=== PATIENT | male | born 1945 | race Caucasian/White ===

== ENCOUNTER 2018-08-04 16:01 | Emergency (ER) | payer MEDICARE, BC ==
[2018-08-04 17:19] LABS: #Eosinphils 0.4 thou/uL (0.0-0.7); #Monocytes 0.9 thou/uL (0.11-0.59); #Neutrophils 7.3 thou/uL (1.40-6.50); %Basophils 0.3 % (0.0-1.0); %Eosinophils 3.7 % (0.0-10.0); %Monocytes 8.2 % (0.0-10.0); %Neutrophils 68.8 % (42.0-75.0); Hemoglobin 17.8 g/dL (14.0-18.0); Mean Corpuscular HGB CONC 33.2 g/dL (32.0-36.0); Mean Corpuscular Hemoglobin 32.8 pg (27.0-31.0); Mean Corpuscular Volume 98.8 fL (78.0-98.0); Mean Platelet Volume 6.5 fL (7.4-10.4); Platelet Count 346 thou/uL (130-400); RBC Distribution Width 11.6 % (11.5-14.5); Red Blood Cell (RBC) Count 5.42 mill/uL (4.70-6.10); White Blood Cell (WBC) Count 10.6 thou/uL (4.8-10.8)
[2018-08-04 17:53] LABS: ALT (SGPT) 21 U/L (8-55); AST (SGOT) 23 U/L (5-34); Albumin 4.2 g/dL (3.4-4.8); Alkaline Phosphatase 74 U/L (40-150); Anion Gap 16 mmol/L (10-20); BUN (Urea Nitrogen) 21 mg/dL (8.4-25.7); Bilirubin, Total 0.5 mg/dL (0.2-1.2); Calc. Creatinine Clearance 0 mL/min (70-130); Calcium 9.9 mg/dL (7.8-10.44); Carbon Dioxide 20 mmol/L (23-31); Chloride 105 mmol/L (98-107); Estimated GFR-MDRD 67; Globulin 4.1 g/dL (2.4-3.5); Glucose 96 mg/dL (83-110); Potassium 4.5 mmol/L (3.5-5.1); Protein, Total 8.3 g/dL (5.8-8.1); Sodium 136 mmol/L (136-145)
[2018-08-04] MEDS ORDERED: cefTRIAXone\\ROCEPHIN 500 MG VIAL ONE (18:28)
[2018-08-04] MEDS ORDERED: Adacel (T-DAP) 0.5 ML SYRINGE ONE (18:28)
[2018-08-04] MEDS ORDERED: Lidocaine 1% PF 5 ML VIAL ONE (18:28)
[2018-08-04] MEDS ORDERED: cefTRIAXone\\ROCEPHIN 1 GM VIAL ONE (18:29)
== END 2018-08-04 19:45 | disposition home or self-care (01) ==
LOC: ERS 16:01
DX: S91.051A Open bite, right ankle, initial encounter (principal); S91.031A Puncture wound without foreign body, right ankle, initial encounter; L03.115 Cellulitis of right lower limb; W55.01XA Bitten by cat, initial encounter
CPT/HCPCS: 36415; 80053; 83605; 85025; 90471; 90715; 96372; J0696; J2001

== ENCOUNTER 2018-08-08 14:39 | Inpatient (IN) | payer MEDICARE, BC ==
[2018-08-08 16:06] LABS: #Eosinphils 0.2 thou/uL (0.0-0.7); #Lymphocytes 1.7 thou/uL (1.20-3.40); #Monocytes 0.9 thou/uL (0.11-0.59); #Neutrophils 6.6 thou/uL (1.40-6.50); %Basophils 0.5 % (0.0-1.0); %Eosinophils 2.2 % (0.0-10.0); %Lymphocytes 17.6 % (21.0-51.0); %Monocytes 9.9 % (0.0-10.0); %Neutrophils 69.9 % (42.0-75.0); Hemoglobin 16.6 g/dL (14.0-18.0); Mean Corpuscular HGB CONC 32.9 g/dL (32.0-36.0); Mean Corpuscular Hemoglobin 32.2 pg (27.0-31.0); Mean Platelet Volume 6.1 fL (7.4-10.4); Platelet Count 432 thou/uL (130-400); RBC Distribution Width 11.5 % (11.5-14.5); Red Blood Cell (RBC) Count 5.15 mill/uL (4.70-6.10); White Blood Cell (WBC) Count 9.4 thou/uL (4.8-10.8)
[2018-08-08] MEDS ORDERED: HYDROcodone/Acetaminophen 10/325 mg Tablet ONE (16:06)
[2018-08-08] MEDS ORDERED: Clindamycin/D5W 900 mg/50 ml Premix Bag ONE (16:06)
[2018-08-08] MEDS ORDERED: cefTRIAXone\\ROCEPHIN 1 GM VIAL ONE (16:06)
--- NOTE | 2018-08-08 16:11 | RAD ---
RIGHT TIBIA AND FIBULA 2 VIEWS: Date: 08/08/18 HISTORY: 73-year-old male with history of cat bite to distal lower leg, with concern for foreign body. FINDINGS: There is some soft tissue swelling of the lower leg with some focal soft tissue swelling anteriorly o jeramy the inferior tibial diaphysis region. No fracture or dislocation. Prominent vascular calcificatio ns. No evidence for foreign body. IMPRESSION: No evidence for an abnormal opaque foreign body. Soft tissue swelling. No significant osseous abnorma lity. POS: TAVO
[2018-08-08 16:25] LABS: ALT (SGPT) 21 U/L (8-55); AST (SGOT) 21 U/L (5-34); Albumin 3.8 g/dL (3.4-4.8); Alkaline Phosphatase 79 U/L (40-150); Anion Gap 15 mmol/L (10-20); BUN (Urea Nitrogen) 19 mg/dL (8.4-25.7); Bilirubin, Total 0.4 mg/dL (0.2-1.2); Calc. Creatinine Clearance 0 mL/min (70-130); Calcium 9.6 mg/dL (7.8-10.44); Carbon Dioxide 22 mmol/L (23-31); Chloride 105 mmol/L (98-107); Estimated GFR-MDRD 65; Globulin 3.7 g/dL (2.4-3.5); Glucose 95 mg/dL (83-110); Potassium 4.9 mmol/L (3.5-5.1); Protein, Total 7.5 g/dL (5.8-8.1); Sodium 137 mmol/L (136-145)
[2018-08-08] MEDS ORDERED: cloNIDine 0.1 MG TAB PO PRN (17:58)
[2018-08-08] MEDS ORDERED: Calcium Carbonate 500 MG ChewTAB PO PRN (17:58)
[2018-08-08] MEDS ORDERED: Nitroglycerin 0.4 MG TAB (25 Tab Bottle) SL PRN (17:58)
[2018-08-08] MEDS ORDERED: Acetaminophen 325 MG TAB PO PRN (17:58)
[2018-08-08] MEDS ORDERED: Ondansetron PF 4 MG/2 ML Vial IVP PRN (17:58)
[2018-08-08] MEDS ORDERED: Diabetic Tussin 200 MG/10 ML UDCUP PO PRN (17:58)
[2018-08-08] MEDS ORDERED: hydrALAZINE 20 MG/ML VIAL SLOW IVP PRN (17:58)
[2018-08-08] MEDS ORDERED: Bisacodyl 5 MG TAB PO PRN (17:58)
[2018-08-08] MEDS ORDERED: Benzonatate 100 MG CAP PO PRN (17:58)
[2018-08-08] MEDS ORDERED: Senokot S 8.6-50 MG TAB PO PRN (17:58)
--- NOTE | 2018-08-08 20:25 | HP ---
PRIMARY CARE PHYSICIAN: Dr. Hari Chambers. CHIEF COMPLAINT: Worsening redness, swelling, and pain in the leg after the cat bite: Failed outpatient antibiotic therapy. HISTORY OF PRESENTING ILLNESS: Mr. Burton is a pleasant 73-year-old male without any significant past medical history, who presented to the emergency room with the above-mentioned complaint. History is mainly obtained by the patient himself. Electronic medical records have been reviewed. The patient reports that he was bitten by his house cat about a week ago and started to develop swelling and redness. He sought care at the emergency room and was given doxycycline and Keflex. His redness did go down, but extended downward towards the foot. It is located in the right lower leg anteriorly. Since yesterday, he has been noticing worsening localized swelling around the bite site with worsening erythema, tenderness, and purulence. He also has been having on and off subjective fever and chills. He is complying with his antibiotic therapy. He reports that the same cat has bitten him twice earlier this year. All those times he just put some antibiotic ointment on the bite and did not require any oral antibiotics. This time because of the severity of infection, they did get the cat checked out for rabies, but the cat was put down emergently instead of being monitored for the next week or 2. The cat that bit the patient was not vaccinated. He did get tetanus vaccination after his first ER visit. Today, upon presentation, he has been hemodynamically stable with a blood pressure of 126/89 with a pulse of 89, saturating 94% on room air. He did undergo a bedside ultrasound with the emergency room physician, which did not show any abscess collection. He did undergo an x-ray of the tibia and fibula of the involved leg, which did not show any evidence of any foreign body or osseous abnormality. He received Rocephin in the emergency room despite his history of penicillin allergy and tolerated it very well. He also received clindamycin in the ER. He is now being admitted to medical floor for right lower extremity cellulitis after the cat bite with failed outpatient therapy. PAST MEDICAL HISTORY: No significant past medical history. PAST SURGICAL HISTORY: 1. Bilateral shoulder surgery. 2. Left wrist surgery x4. PSYCHIATRIC HISTORY: No anxiety. No depression. SOCIAL HISTORY: No history of drug, tobacco, or alcohol abuse. He is and lives with his . They also have a dog, who is vaccinated. FAMILY HISTORY: History of esophageal cancer in his grandfather who smoked. Otherwise, no significant history of coronary artery disease or stroke. ALLERGIES: PENICILLIN. HOME MEDICATIONS: None. REVIEW OF SYSTEMS: A 12-point review of system is done, it is negative except for those mentioned in the history and physical. CODE STATUS: Full code discussed with the patient. LABORATORY EXAMINATION: CBC is unremarkable. Platelet count 432, ESR 50. CRP elevated to 12.49. Otherwise, serum chemistries unremarkable. DIAGNOSTIC DATA: X-ray of the tibia and fibula by my review shows no foreign body and no evidence of any bone involvement. PHYSICAL EXAMINATION: VITAL SIGNS: Upon presentation; blood pressure 126/89, pulse of 89, respirations 18, saturating 94% on room air, temperature 98.2. GENERAL: No acute distress. Awake, alert, and oriented x3. He does appear somewhat ill, but awake, alert, and oriented x3. HEENT: Mucous membrane is moist and pink. No oropharyngeal exudate or erythema. Head is normocephalic, atraumatic. Pupils are equal, reactive to light and accommodation. Extraocular movement intact. NECK: Supple without any lymphadenopathy, JVD, or bruit. CHEST: Clear to auscultation without any wheezing, rales, or rhonchi. Rate and rhythm are regular without any murmurs, rubs, or gallops. ABDOMEN: Soft, nontender, nondistended with positive bowel sounds. EXTREMITIES: He has a localized swelling on the anterior berrios, which is deeply erythematous with some induration. Drying scabs of cat bite are noticed on top of this swelling. He has erythema and tenderness to palpation. The erythema extends downward towards his foot, but it is receding from the markings done by the ER on his leg in upwards. No significant lymphadenopathy is palpable. Other extremities examination are unremarkable. NEUROLOGICAL: Nonfocal. PSYCHIATRIC: Normal affect. IMPRESSION AND PLAN: 1. Right lower extremity cellulitis after a cat bite. He has failed outpatient antibiotic treatment and will need at least 2 to 3 days worth of IV antibiotics. With his penicillin allergy, we will treat him with levofloxacin and Flagyl for now. There is also a question if the cat needed to be monitored longer for rabies as the cat was unvaccinated. I am not sure if the patient will require post exposure rabies prophylaxis or not. We will request consultation with ID with regard to this question. Unfortunately, the cat was put down right away after the bite. However, the patient has sustained multiple bites from the cat in the past and has been doing well and so had the cat. No evidence of sepsis at this time. We will start him on gentle IV fluids as he was complaining of some dizziness. 2. Deep venous thrombosis and gastrointestinal prophylaxis and walking program. 3. Code status: Full code discussed with the patient. 4. Check labs in the morning. 5. Add p.r.n. medications and supportive care. DISPOSITION: Estimated length of stay at this time is at least 2 to 3 midnights. Further management will depend upon his clinical course. Job ID: [id number]
[2018-08-08] MEDS: Sodium Chloride 0.9% 1,000 ML IV SCH (20:47)
[2018-08-08] MEDS: metroNIDAZOLE 500 MG in Premix Bag 1 BAG IVPB SCH (20:47)
[2018-08-08] MEDS: Famotidine 20 MG TAB PO SCH (20:51)
[2018-08-09] MEDS: HYDROcodone/Acetaminophen 5/325 mg Tablet PO PRN ×2 (00:35→23:26)
[2018-08-09] MEDS: metroNIDAZOLE 500 MG in Premix Bag 1 BAG IVPB SCH ×2 (04:40→12:49)
[2018-08-09 06:48] LABS: #Basophils 0.1 thou/uL (0.0-0.2); #Eosinphils 0.6 thou/uL (0.0-0.7); #Lymphocytes 1.7 thou/uL (1.20-3.40); #Monocytes 0.8 thou/uL (0.11-0.59); #Neutrophils 4.4 thou/uL (1.40-6.50); %Eosinophils 7.8 % (0.0-10.0); %Lymphocytes 21.9 % (21.0-51.0); %Monocytes 10.9 % (0.0-10.0); %Neutrophils 58.4 % (42.0-75.0); Hemoglobin 13.8 g/dL (14.0-18.0); Mean Corpuscular HGB CONC 33.1 g/dL (32.0-36.0); Mean Corpuscular Hemoglobin 32.4 pg (27.0-31.0); Mean Platelet Volume 6.2 fL (7.4-10.4); Platelet Count 378 thou/uL (130-400); RBC Distribution Width 11.3 % (11.5-14.5); Red Blood Cell (RBC) Count 4.25 mill/uL (4.70-6.10); White Blood Cell (WBC) Count 7.6 thou/uL (4.8-10.8)
[2018-08-09 06:58] LABS: Anion Gap 12 mmol/L (10-20); BUN (Urea Nitrogen) 17 mg/dL (8.4-25.7); Calc. Creatinine Clearance 82 mL/min (70-130); Calcium 8.6 mg/dL (7.8-10.44); Carbon Dioxide 25 mmol/L (23-31); Chloride 107 mmol/L (98-107); Estimated GFR-MDRD 69; Glucose 94 mg/dL (83-110); Sodium 139 mmol/L (136-145)
[2018-08-09] MEDS: Enoxaparin Sodium 40 MG/0.4 ML SYRINGE SC SCH (08:57)
[2018-08-09] MEDS: Famotidine 20 MG TAB PO SCH ×2 (08:57→20:01)
--- NOTE | 2018-08-09 11:21 | PDOC.PN ---
- Subjective Encounter Start Date: 08/09/18 Encounter Start Time: 11:19 Mr. Burton was seen today in follow-up of cellulitis of the right leg. He says the swelling and redness has improved. He still has a lot of pain in the ankle, especially at night and when he tries to put pressure on the foot. - Objective Resuscitation Status - Order Detail: 08/08/18 19:48 Resuscitation Status Routine Resuscitation Status: FULL: Full Resuscitation Discussed with: discussed w pt EMILY Reviewed: Yes Vital Signs & Weight: Vital Signs (12 hours) Temp Pulse Resp BP Pulse Ox 08/09/18 08:17 98.0 F 65 20 105/69 95 08/09/18 04:40 98.5 F 65 16 99/73 08/09/18 00:30 98.4 F 79 18 112/66 Weight Weight 201 lb 0.985 oz I&O: 08/08/18 08/09/18 08/10/18 06:59 06:59 06:59 Intake Total 934 Balance 934 Result Diagrams: 08/09/18 06:05 08/09/18 06:05 Phys Exam - Physical Examination HEENT: PERRLA Respiratory: no wheezing, no rales, no rhonchi, clear to auscultation bilateral Cardiovascular: RRR, no significant murmur, no rub Gastrointestinal: soft, non-tender, no distention, positive bowel sounds Musculoskeletal: pulses present, edema present + erythema of the right ankle, no warmth good distal pulses, and good capillary refill Dx/Plan (1) Cellulitis of right ankle Code(s): L03.115 - CELLULITIS OF RIGHT LOWER LIMB Status: Acute - Plan * Cellulitis of the right leg, and ankle, due to a cat bite- continue Levaquin and Flagyl, as an alternative to UNasyn due to his PCN allergy * The patient requests that Dr. Martin see him and make recommendations
[2018-08-09] MEDS: cefTRIAXone\\ROCEPHIN 2 GM in Sodium Chloride 0.9% 100 ML IVPB SCH (18:08)
[2018-08-09] MEDS: Vancomycin HCl 1.25 GM in Sodium Chloride 0.9% 250 ML 250 ML IVPB SCH (18:45)
[2018-08-09] MEDS: HYDROcodone/Acetaminophen 10/325 mg Tablet PO PRN (20:01)
[2018-08-09] MEDS: Aspirin 325 mg Enteric Coated Tablet PO SCH (20:01)
[2018-08-09] MEDS: Sodium Chloride 0.9% 1,000 ML IV SCH (23:19)
--- NOTE | 2018-08-09 23:24 | CON ---
DATE OF CONSULTATION: 08/09/2018 REASON FOR CONSULTATION: Cat bite of inflammatory changes. HISTORY OF PRESENT ILLNESS: A 73-year-old, whom I had treated in the past for a left wrist fracture with infection, who was bitten by his cat about a week and a half ago, who has failed outpatient oral antimicrobial therapy managements. He is currently with pain in the right leg with swelling. No headaches, visual symptoms, sore throat, odynophagia, dysphagia. No cough or sputum production. No chest pain. No back pain. No abdominal pain or diarrhea. No genitourinary symptoms. No other joint symptoms. PAST MEDICAL HISTORY: Past history of fracture of the left wrist with postop infection, treated with protracted period of time with IV antimicrobial therapy with resolution. SOCIAL HISTORY: Never smoker. Lives with . FAMILY HISTORY: Esophageal cancer in grandfather. ALLERGIES: PENICILLIN WITH RASH. PHYSICAL EXAMINATION: VITAL SIGNS: T-max 98.1, blood pressure 120/80, pulse 73, respirations 16, O2 saturation 94%. SKIN: Shows the area of swelling and erythema in the distal aspect of the right leg anterior side. Peripheral IV access. No Timmons catheter. HEENT: No lymphadenopathy. Ocular movements conjugate. Oral cavity normal. NECK: Supple. LUNGS: Symmetric. Clear breath sounds. HEART: S1 and S2. Regular rate. No S3 or S4. ABDOMEN: Soft, not distended or tender. : No genitourinary abnormalities. EXTREMITIES: Pulses are 2+ in dorsalis pedis. Knees are normal. Ankles with normal range of motion. NEUROLOGIC: Cognitive function appears to be intact. LABORATORY DATA: White cell count is 9.4 and 7.6, hemoglobin 13.8, platelets 378, with 58% neutrophils. Sodium 137, creatinine 1.11 with a normal liver profile. CRP 12.49, albumin 3.8. Microbiology; we have pending blood cultures. IMAGING STUDIES: We have tibia and fibula x-ray with no abnormalities in bone. ASSESSMENT: Cat bite with inflammatory changes, which have not responded to antimicrobial therapy administered in the outpatient setting. 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 Staphylococcal infection is possible including MRSA. Switch the patient to Rocephin and vancomycin. DC Flagyl and DC quinolone for the time being. MRI of the distal aspect of the right leg to evaluate for abscess and osteomyelitis. Job ID: [id number]
[2018-08-10] MEDS: Vancomycin HCl 1.25 GM in Sodium Chloride 0.9% 250 ML 250 ML IVPB SCH ×2 (05:39→19:10)
[2018-08-10] MEDS: Enoxaparin Sodium 40 MG/0.4 ML SYRINGE SC SCH (11:03)
[2018-08-10] MEDS: Famotidine 20 MG TAB PO SCH ×2 (11:03→21:17)
--- NOTE | 2018-08-10 14:18 | PDOC.PN ---
- Subjective Encounter Start Date: 08/10/18 Encounter Start Time: 14:11 Mr. Burton was seen today in follow-up of cellulitis. He still has some soreness in the ankle, especially when he puts pressure on it. - Objective Resuscitation Status - Order Detail: 08/08/18 19:48 Resuscitation Status Routine Resuscitation Status: FULL: Full Resuscitation Discussed with: discussed w pt MAR Reviewed: Yes Vital Signs & Weight: Vital Signs (12 hours) Temp Pulse Resp BP Pulse Ox 08/10/18 11:24 97.5 F L 73 18 136/80 95 08/10/18 08:00 98.8 F 77 20 122/85 97 08/10/18 05:37 98.0 F 65 18 102/67 Weight Weight 201 lb 0.985 oz I&O: 08/09/18 08/10/18 08/11/18 06:59 06:59 06:59 Intake Total 934 2150 Balance 934 2150 Result Diagrams: 08/09/18 06:05 08/09/18 06:05 Phys Exam - Physical Examination HEENT: PERRLA Respiratory: no wheezing, no rales, no rhonchi, clear to auscultation bilateral Cardiovascular: RRR, no significant murmur Gastrointestinal: soft, non-tender, positive bowel sounds Musculoskeletal: pulses present, edema present + swelling and redness especially about the ankle Dx/Plan (1) Cellulitis of right ankle Code(s): L03.115 - CELLULITIS OF RIGHT LOWER LIMB Status: Acute - Plan * Cellulitis of the right ankle- continue Rocephin and Vancomycin * MRI results are pending * Patient was having quite a bit of pain on ambulating. He was seen by PT, and they are recommending a walker. Will order a rolling walker.
--- NOTE | 2018-08-10 14:38 | MRI ---
MRI RIGHT ANKLE WITH AND WITHOUT CONTRAST: HISTORY: Cat bite. Failed outpatient therapy. COMPARISON: Radiographs of 2 days prior. FINDINGS: In the superficial soft tissues overlying the tibialis anterior tendon is a fluid collection with per ipheral enhancement suggesting an abscess. This is within the subcutaneous fat. There is some exten desiree along the partially torn overlying fascia over the tendon of the tibialis anterior for which the fascia is partially torn as well as the interstitial partial tear of the tendon itself. There is ab normal fluid attenuation around the tendon as well as within the tendon sheath which is partially tor n as well as some abnormal enhancement and edema within the tibialis anterior muscle. The adjacent c ortex of the tibia is intact. No osteomyelitis. There is extensive soft tissue swelling. The peripherally enhancing collection appears to be decompressed with a possible extension to the ski n. This measures 11 mm in transverse by 5 mm in AP x 11 mm in craniocaudad dimension. IMPRESSION: 1. No evidence of osteomyelitis. 2. Likely at the site of recent bite is a peripherally enhancing fluid collection in the subcutaneou s fat extending through the fascia overlying the tibialis anterior tendon and within the tendon sheat h measuring approximately 11 x 4 x 11 mm. There appears to be a tract to the skin surface and this c ollection is decompressed, likely a draining abscess. There is associated infectious tenosynovitis t o the tibialis anterior as well as some myositis of the tibialis anterior muscle without pyomyositis. POS: H
[2018-08-10] MEDS: cefTRIAXone\\ROCEPHIN 2 GM in Sodium Chloride 0.9% 100 ML IVPB SCH (18:15)
[2018-08-10] MEDS: Sodium Chloride 0.9% 20 ML ONE (19:10)
[2018-08-10] MEDS: HYDROcodone/Acetaminophen 10/325 mg Tablet PO PRN ×2 (19:29→23:55)
[2018-08-10] MEDS: Aspirin 325 mg Enteric Coated Tablet PO SCH (21:17)
[2018-08-11] MEDS: HYDROcodone/Acetaminophen 10/325 mg Tablet PO PRN ×3 (05:20→21:38)
[2018-08-11 05:57] LABS: Vancomycin, Trough 15.6 ug/mL
[2018-08-11] MEDS: Vancomycin HCl 1.25 GM in Sodium Chloride 0.9% 250 ML 250 ML IVPB SCH ×2 (06:17→17:03)
[2018-08-11] MEDS ORDERED: Sodium Chloride 0.9% 20 ML ONE (08:00)
[2018-08-11] MEDS ORDERED: Lidocaine 1% w/Epinephrine 1:200K 30 ML VIAL FS SCH (11:00)
[2018-08-11] MEDS: Famotidine 20 MG TAB PO SCH ×2 (11:48→21:38)
[2018-08-11] MEDS: Enoxaparin Sodium 40 MG/0.4 ML SYRINGE SC SCH (11:48)
--- NOTE | 2018-08-11 11:56 | PDOC.PN ---
- Subjective Encounter Start Date: 08/11/18 Encounter Start Time: 11:54 Subjective: feels much better.leg swelling and redness has much improved -: able to walk today w walker but has pain in the ant part of involved leg - Objective Resuscitation Status - Order Detail: 08/08/18 19:48 Resuscitation Status Routine Resuscitation Status: FULL: Full Resuscitation Discussed with: discussed w pt MAR Reviewed: Yes Vital Signs & Weight: Vital Signs (12 hours) Temp Pulse Resp BP Pulse Ox 08/11/18 11:00 98.0 F 72 16 105/67 08/11/18 08:00 98.1 F 71 16 123/80 95 08/11/18 05:17 98.4 F 62 16 133/85 98 08/10/18 23:56 98.2 F 63 18 134/83 95 Weight Weight 201 lb 0.985 oz I&O: 08/10/18 08/11/18 08/12/18 06:59 06:59 06:59 Intake Total 2150 851 Balance 2150 851 Result Diagrams: 08/09/18 06:05 08/09/18 06:05 Radiology Reviewed by me: Yes (MRI leg-fluid collection? abscess) Phys Exam - Physical Examination Constitutional: NAD HEENT: PERRLA, moist MMs, sclera anicteric, oral pharynx no lesions Neck: no nodes, no JVD, supple, full ROM Respiratory: no wheezing, no rales, no rhonchi, clear to auscultation bilateral Cardiovascular: RRR, no significant murmur, no rub Gastrointestinal: soft, non-tender, no distention, positive bowel sounds Musculoskeletal: no edema, pulses present Neurological: non-focal, normal sensation, moves all 4 limbs Psychiatric: normal affect, A&O x 3 Skin: no rash Dx/Plan (1) Cellulitis of right leg Code(s): L03.115 - CELLULITIS OF RIGHT LOWER LIMB Status: Acute (2) Cat bite Code(s): W55.01XA - BITTEN BY CAT, INITIAL ENCOUNTER Status: Acute (3) BPH (benign prostatic hyperplasia) Code(s): N40.0 - BENIGN PROSTATIC HYPERPLASIA WITHOUT LOWER URINRY TRACT SYMP Status: Chronic - Plan plan discussed w/ family, continue antibiotics, PT/OT, out of bed/ambulate cont rocephin and vancomycin. -: Will request GS recs regarding MRI results.? If I&D is needed -: clinically much better. -: HD stable. * . Review of Systems - Review of Systems Constitutional: weakness. negative: fever, chills, sweats, malaise, other Respiratory: negative: Cough, Dry, Shortness of Breath, Hemoptysis, SOB with Excertion, Pleuritic Pain, Sputum, Wheezing Cardiovascular: negative: chest pain, palpitations, orthopnea, paroxysmal nocturnal dyspnea, edema, light headedness, other Gastrointestinal: negative: Nausea, Vomiting, Abdominal Pain, Diarrhea, Constipation, Melena, Hematochezia, Other Genitourinary: negative: Dysuria, Frequency, Incontinence, Hematuria, Retention , Other Musculoskeletal: negative: Neck Pain, Shoulder Pain, Arm Pain, Back Pain, Hand Pain, Leg Pain, Foot Pain, Other Neurological: negative: Weakness, Numbness, Incoordination, Change in Speech, Confusion, Seizures, Other - Medications/Allergies Allergies/Adverse Reactions: Allergies Allergy/AdvReac Type Severity Reaction Status Date / Time Penicillins Allergy Verified 10/13/14 11:23 Medications: Current Medications Acetaminophen (Tylenol) 650 mg PO Q4H PRN PRN Reason: Headache/Fever/Mild Pain (1-3) Hydrocodone Bitart/Acetaminophen (Elmo 5/325) 1 tab PO Q4H PRN PRN Reason: Moderate Pain (4-6) Last Admin: 08/09/18 23:26 Dose: 1 tab Hydrocodone Bitart/Acetaminophen (Elmo 10/325) 1 tab PO Q4H PRN PRN Reason: Moderate to Severe Pain (6-10) Last Admin: 08/11/18 11:49 Dose: 1 tab Aspirin (Ecotrin) 325 mg PO QPM [facility] Last Admin: 08/10/18 21:17 Dose: 325 mg Benzonatate (Tessalon) 100 mg PO Q6H PRN PRN Reason: Cough Bisacodyl (Dulcolax) 10 mg PO DAILYPRN PRN PRN Reason: Constipation Calcium Carbonate (Tums) 1,000 mg PO Q4H PRN PRN Reason: Heartburn or Indigestion Clonidine (Catapres) 0.1 mg PO Q4H PRN PRN Reason: SBP > 160____ Enoxaparin Sodium (Lovenox) 40 mg SC 0900 [facility] Last Admin: 08/11/18 11:48 Dose: 40 mg Famotidine (Pepcid) 20 mg PO BID [facility] Last Admin: 08/11/18 11:48 Dose: 20 mg Guaifenesin (Robitussin Sf) 200 mg PO Q4H PRN PRN Reason: Cough Hydralazine HCl (Apresoline) 10 mg SLOW IVP Q4H PRN PRN Reason: SBP > 180 and HR < 70 Ceftriaxone Sodium 2 gm/ (Sodium Chloride) 100 mls @ 200 mls/hr IVPB Q24HR [facility] Last Admin: 08/10/18 18:15 Dose: 100 mls Vancomycin HCl 1.25 gm/ Sodium (Chloride) 250 mls @ 166.67 mls/hr IVPB 0600, 1800 [facility] Last Admin: 08/11/18 06:17 Dose: 250 mls Lidocaine/Epinephrine (Xylocaine 1% W/ Epi 1:200k) 30 ml FS WILLCALL [facility] Stop: 08/11/18 23:59 Nitroglycerin (Nitrostat) 0.4 mg SL Q5MIN PRN PRN Reason: Chest Pain Ondansetron HCl (Zofran) 4 mg IVP Q6H PRN PRN Reason: Nausea/Vomiting Senna/Docusate Sodium (Senokot S) 2 tab PO BID PRN PRN Reason: Constipation
--- NOTE | 2018-08-11 15:47 | PRG ---
DATE OF SERVICE: 08/11/2018 HISTORY OF PRESENT ILLNESS: Mr. Bruton has felt improvement in inflammatory process. Dr. Roland did an ultrasound and saw only a small amount of fluid in the soft tissues of the right leg. Currently, no headaches, visual symptoms, sore throat, odynophagia, or dysphagia. No dyspnea or chest pain. No abdominal pain or diarrhea. No genitourinary symptoms. Temperature is normal. Other vital signs are normal. Skin exam shows decrease in the erythema and swelling of the right anterior leg. No drainage is noted at this time. Ocular movements conjugate. Lungs are clear. S1 and S2, regular rate. Abdomen is soft and not distended. LABORATORY DATA: White cell count 7.6, hemoglobin 13, platelets 378. Chemistries, unremarkable. No microbiology info. The MRI of the lower extremity demonstrates no evidence of osteomyelitis and there is an enhancing fluid collection, subcutaneous fat extending through the fascia overlying the tibialis anterior tendon and within the tendon sheath. This whole entire fluid collection measures 11 x 4 x 11 mm. It is quite small. ASSESSMENT AND DISCUSSION: Cat bite, right leg with abscess either secondary to pasteurella multocida or Staphylococcus aureus. MRSA possible. Continue Rocephin, vancomycin. May need surgical debridement or not. It looks like it is improving just with antimicrobial therapy. In view of the tendon involvement, I would extend the duration of therapy longer than what one would otherwise with just the subcutaneous tissue abscess. After further improvement and transition to combination of doxycycline and ciprofloxacin for discharge planning. Duration of therapy anywhere from 3 to 4 weeks. Job ID: [id number]
[2018-08-11] MEDS: Sodium Chloride 0.9% 20 ML ONE (17:04)
[2018-08-11] MEDS: HYDROcodone/Acetaminophen 5/325 mg Tablet PO PRN (17:11)
[2018-08-11] MEDS: cefTRIAXone\\ROCEPHIN 2 GM in Sodium Chloride 0.9% 100 ML IVPB SCH (19:32)
[2018-08-11] MEDS: Aspirin 325 mg Enteric Coated Tablet PO SCH (21:38)
--- NOTE | 2018-08-11 21:38 | CON ---
DATE OF CONSULTATION: REASON FOR CONSULT: Evaluate for possible abscess from cat bite on the right leg. HISTORY OF PRESENT ILLNESS: Mr. Burton is a 73-year-old man who was bitten by house cat on the right leg about a week prior to his admission. He developed swelling and redness and was prescribed doxycycline and Keflex, but the redness persisted and moved toward his foot, and he also had increasing swelling and tenderness. He denies any drainage from the bites and has been compliant with antibiotics. He had been bitten before by the same cat and this is the 3rd injury that the cat had inflicted on him, so it was taken to and was put to sleep. Rabies examination was negative. The cat was not vaccinated. He was admitted to the hospital for IV antibiotics and initially received Rocephin and vancomycin. Dr. Martin saw him 2 days ago and recommended Rocephin and vancomycin, Flagyl and quinolones were discontinued. An MRI was also obtained. The patient states that since switching antibiotics 2 days ago, his leg has gotten significantly better. Dr. Damon also confirms that the leg looks better than yesterday. He denies any fevers or chills and is feeling well, although he still has some tenderness at the site. PAST MEDICAL HISTORY: None. PAST SURGICAL HISTORY: Shoulder and wrist surgery. SOCIAL HISTORY: He does not smoke, drink, or use illicit drugs. FAMILY HISTORY: He has a family history of esophageal cancer. ALLERGIES: HE REPORTS ALLERGY TO PENICILLIN. MEDICATIONS: Does not take any routine home medications. REVIEW OF SYSTEMS: Ten-system review of systems is negative except per HPI. PHYSICAL EXAMINATION: VITAL SIGNS: The patient has been afebrile, heart rate in the 60s to 70s, respirations 16 to 20, and 95% saturated on room air with normal blood pressure. GENERAL: Reveals a healthy-appearing man, who appears younger than his stated age. He is not flushed or toxic in appearance. He is not jaundiced or icteric. HEENT: Unremarkable. NECK: Supple without lymphadenopathy. HEART: Regular rate in its and rhythm without murmurs, rubs, or gallops. LUNGS: Clear to auscultation bilaterally. ABDOMEN: Soft, nontender, and nondistended. EXTREMITIES: Warm and well perfused. He has focal redness and swelling over his right anterior berrios with several deep puncture wounds. There is some bogginess to the tissues, but no fluctuance and no expressible drainage from any of the puncture wounds. No lymphangitic streaking and only mild edema of the surrounding tissues. NEUROLOGIC: No focal deficits. PSYCHIATRIC: Alert, oriented, and appropriate. LABORATORY DATA: Lower extremity MRI revealed a peripherally enhancing fluid collection which measured 11 mm x 4 mm with a tract to the skin surface. It was stated that the collection was decompressed and likely draining. He had some infectious changes of the surrounding tendon and muscle. On ultrasound done at the bedside, there was a heterogeneous oval shaped area correlating with the area felt to be an abscess; however, this was hypoechoic, not anechoic, and did not have any ballotable consistency to it. ASSESSMENT: Phlegmon at the site of cat bite. This may develop into an abscess, but there is no drainable fluid collection at this time. The patient states that the area is improving on his new antibiotics and we will observe it for now. If he develops fluctuance or a definite fluid collection, then I and D would be recommended. With warm compresses and showers, this may continue to decompress through the puncture wounds. Job ID: [id number]
[2018-08-12] MEDS: Vancomycin HCl 1.25 GM in Sodium Chloride 0.9% 250 ML 250 ML IVPB SCH ×2 (05:59→18:31)
[2018-08-12] MEDS: HYDROcodone/Acetaminophen 10/325 mg Tablet PO PRN ×3 (06:06→20:00)
[2018-08-12] MEDS: Enoxaparin Sodium 40 MG/0.4 ML SYRINGE SC SCH (08:17)
[2018-08-12] MEDS: Famotidine 20 MG TAB PO SCH ×2 (08:18→20:00)
--- NOTE | 2018-08-12 16:22 | PDOC.PN ---
- Subjective Encounter Start Date: 08/12/18 Encounter Start Time: 16:20 Subjective: pt up in bed no complains - Objective Resuscitation Status - Order Detail: 08/08/18 19:48 Resuscitation Status Routine Resuscitation Status: FULL: Full Resuscitation Discussed with: discussed w pt Vital Signs & Weight: Vital Signs (12 hours) Temp Pulse Resp BP Pulse Ox 08/12/18 08:00 97.8 F 74 18 116/78 94 L Weight Weight 201 lb 0.985 oz I&O: 08/11/18 08/12/18 08/13/18 06:59 06:59 06:59 Intake Total 851 661 Balance 851 661 Result Diagrams: 08/09/18 06:05 08/09/18 06:05 Phys Exam - Physical Examination Neck: no nodes, no JVD, supple, full ROM Respiratory: no wheezing, no rales, no rhonchi, wheezing present, clear to auscultation bilateral Cardiovascular: RRR, no significant murmur, no rub, gallop, irregular Gastrointestinal: soft, non-tender, no distention, positive bowel sounds Musculoskeletal: no edema, pulses present, edema present Neurological: non-focal, normal sensation, moves all 4 limbs good pulse Deviation from normal: right ankle mild erythema Dx/Plan (1) Cat bite Code(s): W55.01XA - BITTEN BY CAT, INITIAL ENCOUNTER Status: Acute (2) Cellulitis of right ankle Code(s): L03.115 - CELLULITIS OF RIGHT LOWER LIMB Status: Acute (3) BPH (benign prostatic hyperplasia) Code(s): N40.0 - BENIGN PROSTATIC HYPERPLASIA WITHOUT LOWER URINRY TRACT SYMP Status: Chronic - Plan will conitnue abx for now -: encouraged pt to walk -: mild erythema noted to right ankle * . Review of Systems - Review of Systems Respiratory: negative: Cough, Dry, Shortness of Breath, Hemoptysis, SOB with Excertion, Pleuritic Pain, Sputum, Wheezing Cardiovascular: negative: chest pain, palpitations, orthopnea, paroxysmal nocturnal dyspnea, edema, light headedness, other Gastrointestinal: negative: Nausea, Vomiting, Abdominal Pain, Diarrhea, Constipation, Melena, Hematochezia, Other Genitourinary: negative: Dysuria, Frequency, Incontinence, Hematuria, Retention , Other - Medications/Allergies Allergies/Adverse Reactions: Allergies Allergy/AdvReac Type Severity Reaction Status Date / Time Penicillins Allergy Verified 10/13/14 11:23 Medications: Current Medications Acetaminophen (Tylenol) 650 mg PO Q4H PRN PRN Reason: Headache/Fever/Mild Pain (1-3) Hydrocodone Bitart/Acetaminophen ([place] 5/325) 1 tab PO Q4H PRN PRN Reason: Moderate Pain (4-6) Last Admin: 08/11/18 17:11 Dose: 1 tab Hydrocodone Bitart/Acetaminophen ([place] 10/325) 1 tab PO Q4H PRN PRN Reason: Moderate to Severe Pain (6-10) Last Admin: 08/12/18 11:35 Dose: 1 tab Aspirin (Ecotrin) 325 mg PO QPM [facility] Last Admin: 08/11/18 21:38 Dose: 325 mg Benzonatate (Tessalon) 100 mg PO Q6H PRN PRN Reason: Cough Bisacodyl (Dulcolax) 10 mg PO DAILYPRN PRN PRN Reason: Constipation Calcium Carbonate (Tums) 1,000 mg PO Q4H PRN PRN Reason: Heartburn or Indigestion Clonidine (Catapres) 0.1 mg PO Q4H PRN PRN Reason: SBP > 160____ Enoxaparin Sodium (Lovenox) 40 mg SC 0900 [facility] Last Admin: 08/12/18 08:17 Dose: 40 mg Famotidine (Pepcid) 20 mg PO BID [facility] Last Admin: 08/12/18 08:18 Dose: 20 mg Guaifenesin (Robitussin Sf) 200 mg PO Q4H PRN PRN Reason: Cough Hydralazine HCl (Apresoline) 10 mg SLOW IVP Q4H PRN PRN Reason: SBP > 180 and HR < 70 Ceftriaxone Sodium 2 gm/ (Sodium Chloride) 100 mls @ 200 mls/hr IVPB Q24HR [facility] Last Admin: 08/11/18 19:32 Dose: 100 mls Vancomycin HCl 1.25 gm/ Sodium (Chloride) 250 mls @ 166.67 mls/hr IVPB 0600, 1800 [facility] Last Admin: 08/12/18 05:59 Dose: 250 mls Nitroglycerin (Nitrostat) 0.4 mg SL Q5MIN PRN PRN Reason: Chest Pain Ondansetron HCl (Zofran) 4 mg IVP Q6H PRN PRN Reason: Nausea/Vomiting Senna/Docusate Sodium (Senokot S) 2 tab PO BID PRN PRN Reason: Constipation
[2018-08-12] MEDS: cefTRIAXone\\ROCEPHIN 2 GM in Sodium Chloride 0.9% 100 ML IVPB SCH (17:17)
--- NOTE | 2018-08-12 19:09 | PRG ---
DATE OF SERVICE: 08/12/2018 PROGRESS NOTE AND PROCEDURE NOTE: SUBJECTIVE: Mr. Burton has been hospitalized now since August 08. Today is hospital day #5. He has a cat bite to his right lower leg. This has been evolving from a cellulitis. On examination yesterday, he was felt by Dr. Roland to likely have a phlegmon. On my examination today, the anterior most puncture site had evolved into an abscess with a fluid collection, and I recommended incision and drainage. Mr. Burton tells me that his leg continues to improve and that the erythema and swelling have improved, but he recognized that there is a fluctuant bulge associated with the anterior puncture site. PHYSICAL EXAMINATION: On examination, he is afebrile. Vital signs are normal. The right leg is clearly edematous and there is erythema inferior to the puncture wounds. The area of fluctuance is about 2 cm in diameter. PROCEDURE: Informed consent was obtained. The patient's right lower leg was prepped with ChloraPrep while in his bed here on the pediatric floor. It was circumferentially locally anesthetized with 1% lidocaine with epinephrine. A transverse incision was created over the fluctuant area and dissection was carried through the skin and subcutaneous tissue. A pocket was entered that extended about 2 cm inferiorly. There was a thin cloudy fluid within this. This was expressed. There was no creamy purulent type material. There was no evidence of foreign body, although there was a little bit of necrotic fatty tissue within it. The area was irrigated with peroxide. A quarter-inch [place] drain was placed inferiorly down into the pocket and was secured to the skin exit site with a 4-0 nylon suture. Dry gauze dress was placed externally. The patient tolerated the procedure well. I anticipate he will be stable for discharge tomorrow with a course of oral antibiotics. Cultures were not obtained today secondary to the lengthy course of antibiotics he has already received, rendering a culture useless at this point. I would anticipate the Kaity drain being left in for 5 days and I would want to see him back in my office this upcoming Monday for removal at that time. Job ID: [id number]
[2018-08-12] MEDS: Aspirin 325 mg Enteric Coated Tablet PO SCH (20:00)
[2018-08-12 20:05] VITALS: TEMP 98.1
[2018-08-13] MEDS: HYDROcodone/Acetaminophen 10/325 mg Tablet PO PRN ×2 (00:02→04:45)
[2018-08-13] MEDS: Vancomycin HCl 1.25 GM in Sodium Chloride 0.9% 250 ML 250 ML IVPB SCH (06:15)
[2018-08-13] MEDS: Enoxaparin Sodium 40 MG/0.4 ML SYRINGE SC SCH (08:19)
[2018-08-13] MEDS: Famotidine 20 MG TAB PO SCH (08:19)
[2018-08-13] MEDS: HYDROcodone/Acetaminophen 5/325 mg Tablet PO PRN (08:50)
[2018-08-13 08:53] VITALS: BP 125/87
--- NOTE | 2018-08-13 10:25 | PRG ---
DATE OF SERVICE: 08/13/2018 SUBJECTIVE: The patient remains on the pediatric floor. This is hospital day #6 for him. He is postprocedure day #1 from incision and drainage of a fluid collection on his anterior right lower leg. He has no complaints. He states his foot feels better. Dressing is intact and it was removed revealing a small amount of appropriate serosanguineous drainage onto the gauze. OBJECTIVE: VITAL SIGNS: On examination, he is afebrile. Vital signs within normal limits. EXTREMITIES: Examination is focused on right lower leg. There is still certainly soft tissue swelling within the lower leg and foot. The dressing was removed, and the Kaity drain is intact with appropriate resolving inflammatory changes from his infection. LABORATORY DATA: None. ASSESSMENT: The patient is stable from a surgical standpoint. He remains on Rocephin and vancomycin. From my standpoint, he may certainly be discharged home on oral antibiotics at any time. I will see him back on August 17, to remove his drain. I have instructed him to keep his leg elevated at all times that he is not ambulating between now and then to help with the edema. Job ID: [id number]
[2018-08-13] MEDS ORDERED: Prevnar 13-Val Conj/PF 0.5 ML SYRINGE IM ONE (12:30)
--- NOTE | 2018-08-13 17:54 | DIS ---
DATE OF ADMISSION: 08/08/2018 DATE OF DISCHARGE: 08/13/2018 DISCHARGE DIAGNOSES: As of the following; 1. Cat bite. 2. Cellulitis of the right ankle. 3. Benign prostatic hyperplasia. HOSPITAL COURSE: The patient is a very pleasant 73-year-old male, who initially presented to the hospital with complaints of worsening redness and swelling to his right leg after he was bitten by a cat and apparently was put on antibiotics, but failed outpatient, but started having worsening redness on the antibiotics. The patient at this time underwent a lower extremity MRI, which indicated no evidence of osteo; however, had some peripheral enhancing fluid collection in the subcutaneous fact extending throughout the fascia overlying the tibia, tibialis, anterior tendon, and with tendon sheet measuring about 11 x 4 x 11 mm. At this time also, there was some indication of infectious tenosynovitis to the tibialis anterior as well as some myositis to the tibialis anterior muscle without pyomyositis. Infectious Disease was consulted. The patient was put on broad-spectrum antibiotics. Also, Surgery was consulted given mild fluctuating fluid in his right ankle. His erythema continued to reside. He did have an incision and drainage on the by Surgery and a Kaity drain was put in. Cultures were not sent per the surgical note. The patient continued to improve and at this time per Infectious Disease recommendation, he was put on doxycycline and ciprofloxacin for duration of 3 to 4 weeks. I have explained to the family that I have provided him with antibiotic therapy only for a week. He will need to follow up with his primary care doctor for further prolongation and also will require blood work in between. His home medications will be ciprofloxacin 500 mg b.i.d., doxycycline 100 mg q.12 hours, Florastor 250 mg daily, and aspirin 325 mg q.p.m. He will also follow up with Surgery on Monday and also follow up with primary care doctor in the next week. PHYSICAL EXAMINATION: VITAL SIGNS: 98.1, 63, 18, 94% on room air, and 125/87. GENERAL: He is awake, alert, and oriented x3. Does not appear in distress. CV: S1 and S2 present. No murmurs, rubs, or gallops. ABDOMEN: Soft and nontender. Bowel sounds present x2. EXTREMITIES: No edema. He does have some redness around his right berrios area; however, the pedal pulses are present. Job ID: [id number]
== END 2018-08-13 15:21 | disposition home or self-care (01) | DRG 603 ==
LOC: ERS 14:39 → 3SE 17:58
PROVIDERS: ADMIT Internal Medicine; ATTEND Internal Medicine
DX: L03.115 Cellulitis of right lower limb (principal); W55.01XA Bitten by cat, initial encounter; N40.0 Benign prostatic hyperplasia without lower urinary tract symptoms
CPT/HCPCS: 36415; 80048; 80053; 80202; 85025; 85652; 86140; 90471; 90662; 90670; G0008; G0009; J0696; J1650; J1956; J3370; J3490; J7050

== ENCOUNTER 2018-09-27 15:29 | Emergency (ER) | payer MEDICARE, BC ==
--- NOTE | 2018-09-27 17:47 | CT ---
CT HEAD WITHOUT CONTRAST: INDICATIONS: Mental status change. COMPARISON: No comparison available. TECHNIQUE: Multiple axial tomograms obtained through the head without IV enhancement. FINDINGS: There is cortical volume loss, most prominent involving the frontal lobes. The ventricles have caitlin l size and position. Lucency in the left basal ganglia probably represents prominent perivascular sp cara. There are mild chronic ischemic changes. No focal mass, hemorrhage, or evidence or cortical in farct identified. The paranasal sinuses are aerated. There is focal mucosal opacification in the right maxillary antru m, which suggests air-fluid level and possible associated mucosal edema. The other paranasal sinuses appear clear. IMPRESSION: 1. No acute intracranial process identified. 2. Abnormal opacity in the right maxillary sinus. Recommend clinical correlation. POS: [facility]
== END 2018-09-27 17:02 | disposition home or self-care (01) ==
LOC: ERS 15:29
DX: R20.0 Anesthesia of skin (principal)
CPT/HCPCS: 70450

== ENCOUNTER 2018-10-09 10:05 | Outpatient (CLI) | payer MEDICARE, BC ==
--- NOTE | 2018-10-09 12:08 | ULT ---
CAROTID DUPLEX SONOGRAM: HISTORY: TIA. Vascular disease. FINDINGS: RIGHT: Scattered plaque. COLOR AND SPECTRAL DOPPLER EVALUATION: A peak systolic velocity of 54 cm per second and an ICA/CCA r atio of 0.8 suggests no hemodynamically significant stenosis within the extracranial right ICA. Anteg rade flow within the vertebral artery. LEFT: Scattered plaque. COLOR AND SPECTRAL DOPPLER EVALUATION: A peak systolic velocity of 50 cm per second and an ICA/CCA r atio of 0.8 suggests no hemodynamically significant stenosis within the extracranial left ICA. Anteg rade flow within the vertebral artery. IMPRESSION: Atherosclerosis. No sonographic evidence of significant extracranial internal carotid artery stenosi s. POS: [facility]
== END 2018-10-09 10:06 | disposition home or self-care (01) ==
LOC: ULT 10:05
PROVIDERS: ATTEND Physician Assistant
DX: I77.89 Other specified disorders of arteries and arterioles (principal); I70.90 Unspecified atherosclerosis
CPT/HCPCS: 93880

== ENCOUNTER 2023-01-26 12:38 | Outpatient (CLI) | payer MEDICARE ==
[2023-01-26] MEDS ORDERED: Iopamidol 370 76% 100 ML VIAL ONE (15:37)
== END 2023-01-26 12:39 | disposition home or self-care (01) ==
LOC: BICCT 12:38
PROVIDERS: ATTEND Internal Medicine Cardiovascular Disease
DX: R06.02 Shortness of breath (principal); I35.1 Nonrheumatic aortic (valve) insufficiency; R09.89 Other specified symptoms and signs involving the circulatory and respiratory systems
CPT/HCPCS: 71275; 82565; Q9967